=== PATIENT | female | born 1990 | race Caucasian/White ===

== ENCOUNTER 2019-06-12 12:09 | Emergency (ER) | payer BC, SELFPAY ==
--- NOTE | 2019-06-12 13:28 | EDPHYS ---
Physician Documentation [facility] Name: Mariely Maldonado Age: 28 yrs Sex: Female : 1990 Arrival Date: 06/12/2019 Time: 12:14 Bed 14 Private MD: ED Physician Marino Lea HPI: 06/12 13:09 This 28 yrs old Female presents to ER via Ambulatory with complaints of kb Cough, Runny Nose. 13:09 The patient or guardian reports cough, that is intermittent, described as mild, with no kb sputum. Onset: The symptoms/episode began/occurred 3 day(s) ago. Severity of symptoms: At their worst the symptoms were mild, moderate, in the emergency department the symptoms are unchanged. Modifying factors: The symptoms are alleviated by nothing, the symptoms are aggravated by nothing. Associated signs and symptoms: Pertinent positives: rhinorrhea. The patient has not experienced similar symptoms in the past. The patient has not recently seen a physician. 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 - Coronavirus screen:: The patient has NOT traveled to [place], [place], or [place] in the past 14 days. The patient has NOT had contact with known/suspected case of Coronavirus? Proceed with normal triage procedures. - Social history:: Smoking status: Patient reports the use of cigarette tobacco products, smokes one-half pack cigarettes per day. - Ebola Screening: : No symptoms or risks identified at this time. ROS: 13:07 Constitutional: Negative for fever, chills, and weight loss, Neck: Negative for injury, kb pain, and swelling, Cardiovascular: Negative for chest pain, palpitations, and edema, Abdomen/GI: Negative for abdominal pain, nausea, vomiting, diarrhea, and constipation, Back: Negative for injury and pain, MS/Extremity: Negative for injury and deformity, Skin: Negative for injury, rash, and discoloration, Neuro: Negative for headache, weakness, numbness, tingling, and seizure. 13:07 ENT: Positive for rhinorrhea, sinus congestion. 13:07 Respiratory: Positive for cough. Exam: 13:07 Constitutional: This is a well developed, well nourished patient who is awake, alert, kb and in no acute distress. Head/Face: Normocephalic, atraumatic. ENT: Nares patent. No nasal discharge, no septal abnormalities noted. Tympanic membranes are normal and external auditory canals are clear. Oropharynx with no redness, swelling, or masses, exudates, or evidence of obstruction, uvula midline. Mucous membranes moist. Neck: Trachea midline, no thyromegaly or masses palpated, and no cervical lymphadenopathy. Supple, full range of motion without nuchal rigidity, or vertebral point tenderness. No Meningismus. Chest/axilla: Normal chest wall appearance and motion. Nontender with no deformity. No lesions are appreciated. Cardiovascular: Regular rate and rhythm with a normal S1 and S2. No gallops, murmurs, or rubs. Normal PMI, no JVD. No pulse deficits. Respiratory: Lungs have equal breath sounds bilaterally, clear to auscultation and percussion. No rales, rhonchi or wheezes noted. No increased work of breathing, no retractions or nasal flaring. Abdomen/GI: Soft, non-tender, with normal bowel sounds. No distension or tympany. No guarding or rebound. No evidence of tenderness throughout. Skin: Warm, dry with normal turgor. Normal color with no rashes, no lesions, and no evidence of cellulitis. MS/ Extremity: Pulses equal, no cyanosis. Neurovascular intact. Full, normal range of motion. Neuro: Awake and alert, GCS 15, oriented to person, place, time, and situation. Cranial nerves II-XII grossly intact. Motor strength 5/5 in all extremities. Sensory grossly intact. Cerebellar exam normal. Normal gait. Vital Signs: 12:20 BP 126 / 79; Pulse 88; Resp 16; Temp 97.4; Pulse Ox 100% on R/A; Weight 58.97 kg (R); hb Height 5 ft. 5 in. (165.10 cm); Pain 0/10; 13:45 BP 115 / 78; Pulse 81; Resp 18; Temp 97.9; Pulse Ox 99% on R/A; ph 12:20 Body Mass Index 21.63 (58.97 kg, 165.10 cm) hb MDM: 12:24 Patient medically screened. kb 13:07 Data reviewed: vital signs, nurses notes. Data interpreted: Pulse oximetry: on room air kb is 100 %. Interpretation: normal. 13:26 Counseling: I had a detailed discussion with the patient and/or guardian regarding: the kb historical points, exam findings, and any diagnostic results supporting the discharge/admit diagnosis, lab results, the need for outpatient follow up, a family practitioner, to return to the emergency department if symptoms worsen or persist or if there are any questions or concerns that arise at home. 06/12 12:16 Order name: Flu; Complete Time: 13:26 kb 06/12 12:16 Order name: Strep; Complete Time: 13:26 kb Administered Medications: 13:41 Drug: Bicillin L-A 1.2 million units Route: IM; Site: right vastus lateralis; ph 13:57 Follow up: Response: No adverse reaction ph Disposition: 14:17 Co-signature as Attending Physician, Marino Lea MD. rn Disposition: 06/12/19 13:28 Discharged to Home. Impression: Streptococcal pharyngitis. - Condition is Stable. - Discharge Instructions: Strep Throat, [id number]. - Medication Reconciliation Form, Thank You Letter, Antibiotic Education, Prescription Opioid Use, Work release form form. - Follow up: Emergency Department; When: As needed; Reason: Worsening of condition. Follow up: Private Physician; When: 2 - 3 days; Reason: Recheck today's complaints, Continuance of care, Re-evaluation by your physician. Signatures: Dispatcher [employer] EDGA Francisca Sethi, MACHINE PRECISION ENGRAVER-C MACHINE PRECISION ENGRAVER-Ckb Marino Lea MD MD rn Shi Martinez RN RN ph Meggan Sow RN RN Corrections: (The following items were deleted from the chart) 14:01 13:28 06/12/2019 13:28 Discharged to Home. Impression: Streptococcal pharyngitis. ph Condition is Stable. Forms are Medication Reconciliation Form, Thank You Letter, Antibiotic Education, Prescription Opioid Use. Follow up: Emergency Department; When: As needed; Reason: Worsening of condition. Follow up: Private Physician; When: 2 - 3 days; Reason: Recheck today's complaints, Continuance of care, Re-evaluation by your physician. kb
--- NOTE | 2019-06-12 13:28 | ER ---
Nurse's Notes [facility] Name: Mariely Maldonado Age: 28 yrs Sex: Female : 1990 Arrival Date: 06/12/2019 Time: 12:14 Bed 14 Private MD: Diagnosis: Streptococcal pharyngitis Presentation: 06/12 12:19 Presenting complaint: Cough, runny nose, and sinus congestion x 3 days. Denies hb fever/pain/N/V/D. Transition of care: patient was not received from another setting of care. Onset of symptoms was June 10, 2019. Risk Assessment: Do you want to hurt yourself or someone else? Patient reports no desire to harm self or others. Initial Sepsis Screen: Does the patient meet any 2 criteria? No. Patient's initial sepsis screen is negative. Does the patient have a suspected source of infection? No. Patient's initial sepsis screen is negative. Care prior to arrival: None. 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 - Coronavirus screen:: The patient has NOT traveled to [place], [place], or [place] in the past 14 days. The patient has NOT had contact with known/suspected case of Coronavirus? Proceed with normal triage procedures. - Social history:: Smoking status: Patient reports the use of cigarette tobacco products, smokes one-half pack cigarettes per day. - Ebola Screening: : No symptoms or risks identified at this time. Screenin:34 Abuse screen: Denies threats or abuse. Denies injuries from another. Nutritional ph screening: No deficits noted. Tuberculosis screening: No symptoms or risk factors identified. Fall Risk None identified. Assessment: 12:35 General: Appears in no apparent distress. comfortable, Behavior is calm, cooperative, ph appropriate for age, Denies fever. Pain: Denies pain. Neuro: Level of Consciousness is awake, alert, obeys commands, Oriented to person, place, time, situation. Cardiovascular: Capillary refill < 3 seconds in bilateral fingers Patient's skin is warm and dry. Respiratory: Reports cough that is Airway is patent Respiratory effort is even, unlabored, Respiratory pattern is regular, symmetrical, Breath sounds are clear bilaterally. GI: No signs and/or symptoms were reported involving the gastrointestinal system. EENT: Reports nasal congestion nasal discharge. Derm: Skin is intact, is healthy with good turgor, Skin is pink, warm \T\ dry. Vital Signs: 12:20 BP 126 / 79; Pulse 88; Resp 16; Temp 97.4; Pulse Ox 100% on R/A; Weight 58.97 kg (R); hb Height 5 ft. 5 in. (165.10 cm); Pain 0/10; 13:45 BP 115 / 78; Pulse 81; Resp 18; Temp 97.9; Pulse Ox 99% on R/A; ph 12:20 Body Mass Index 21.63 (58.97 kg, 165.10 cm) hb ED Course: 12:14 Patient arrived in ED. ag5 12:16 Francisca Sethi FNP-C is [facility]. kb 12:16 Marino Lea MD is Attending Physician. kb 12:20 Triage completed. hb 12:20 Arm band placed on. hb 12:33 Shi Martinez RN is Primary Nurse. ph 12:36 No provider procedures requiring assistance completed. Patient did not have IV access ph during this emergency room visit. 12:37 Patient has correct armband on for positive identification. ph Administered Medications: 13:41 Drug: Bicillin L-A 1.2 million units Route: IM; Site: right vastus lateralis; ph 13:57 Follow up: Response: No adverse reaction ph Outcome: 13:28 Discharge ordered by . kb 14:01 Patient left the ED. ph 14:01 Discharged to home ambulatory. ph 14:01 Condition: good 14:01 Discharge instructions given to patient, Instructed on discharge instructions, follow up and referral plans. Demonstrated understanding of instructions, follow-up care. Signatures: Francisca Sethi FNP-C FNP-Shi Mathis RN RN Meggan Clemons RN RN Daniela Dixon ag5
[2019-06-12] MEDS ORDERED: PEN G BENZ LA 1.2MU/2ML SYRINGE IM ONE (13:38)
[2019-06-12 14:07] VITALS: BP 126/79; TEMP 97.4; O2SAT 100
== END 2019-06-12 14:01 | disposition home or self-care (01) ==
LOC: ER 12:09
DX: J02.0 Streptococcal pharyngitis (principal); F17.210 Nicotine dependence, cigarettes, uncomplicated
CPT/HCPCS: 87081; 87804; 96372; 99283; J0561